=== PATIENT | male | born 1965 | race African-American/Black ===

== ENCOUNTER 2024-09-28 05:18 | Observation (INO) | payer OTHER ==
[2024-09-28 05:28] VITALS: BMI 33.0
[2024-09-28] MEDS ORDERED: ASPIRIN 325 MG TABLET ONE (05:56)
[2024-09-28] MEDS: ASPIRIN 325 MG TABLET PO ONE (05:58)
[2024-09-28 06:59] LABS: POTASSIUM 4.5 mmol/L (3.5-5.1)
[2024-09-28 07:00] LABS: INR 1.03 (0.83-1.09); PROTHROMBIN TIME (PATIENT) 11.2 SEC (9.7-13.0)
[2024-09-28 07:01] LABS: ALBUMIN 3.8 g/dl (3.4-5.0); BLOOD UREA NITROGEN 19.4 mg/dL (7-18); CALCIUM 9.7 mg/dL (8.5-10.1)
[2024-09-28 07:02] LABS: ABSOLUTE IMMATURE GRANULOCYTES 0.02 x10^3/uL (0.0-0.031); BASOPHILS # 0.03 x10^3/uL (0.01-0.08); EOSINOPHIL % 3.9 % (0.8-7.0); EOSINOPHILS # 0.22 x10^3/uL (0.04-0.54); HEMATOCRIT 42.3 % (40.1-51.0); HEMOGLOBIN 13.8 g/dL (13.7-17.5); MCHC 32.6 g/dl (32.3-36.5); MEAN CELL VOLUME 94.8 fl (79.0-92.2); MEAN PLT VOLUME 10.1 fl (9.4-12.4); MONOCYTE # 0.51 x10^3/uL (0.30-0.82); MONOCYTE % 9.1 % (5.3-12.2); PLATELET COUNT 237 x10^3/uL (163-337); RDW 12.8 % (12.2-16.1)
[2024-09-28 07:03] LABS: ACTIVATED PTT 34.5 SECONDS (25.2-36.5)
[2024-09-28 07:06] LABS: BILIRUBIN,TOTAL 0.5 mg/dL (0.2-1); TOT PROT 7.1 g/dl (6.4-8.2)
[2024-09-29 08:14] LABS: ABSOLUTE IMMATURE GRANULOCYTES 0.02 x10^3/uL (0.0-0.031); BASOPHILS # 0.05 x10^3/uL (0.01-0.08); EOSINOPHIL % 4.5 % (0.8-7.0); EOSINOPHILS # 0.24 x10^3/uL (0.04-0.54); HEMATOCRIT 42.5 % (40.1-51.0); HEMOGLOBIN 13.7 g/dL (13.7-17.5); MCHC 32.2 g/dl (32.3-36.5); MEAN CELL VOLUME 93.4 fl (79.0-92.2); MEAN PLT VOLUME 9.7 fl (9.4-12.4); MONOCYTE % 9.5 % (5.3-12.2); PLATELET COUNT 225 x10^3/uL (163-337); RDW 12.7 % (12.2-16.1)
[2024-09-29 08:33] LABS: POTASSIUM 4.7 mmol/L (3.5-5.1)
[2024-09-29 08:36] LABS: CALCIUM 9.8 mg/dL (8.5-10.1)
[2024-09-29 08:37] LABS: ALBUMIN 3.8 g/dl (3.4-5.0); BLOOD UREA NITROGEN 18.9 mg/dL (7-18)
[2024-09-29 08:40] LABS: CREATININE 0.9 mg/dL (0.55-1.3)
[2024-09-29 08:42] LABS: BILIRUBIN,TOTAL 0.6 mg/dL (0.2-1)
[2024-09-29 08:43] LABS: TOT PROT 6.8 g/dl (6.4-8.2)
[2024-09-29] MEDS: PANTOPRAZOLE 40 MG TABLET PO SCH (10:43)
[2024-09-29] MEDS: ASPIRIN 81 MG CHEWABLE TABLETS PO SCH (10:43)
[2024-09-29 16:49] LABS: N-TERMINAL BNP 14.8 pg/ml (5-125)
[2024-09-30 08:00] LABS: HEMATOCRIT 43.7 % (40.1-51.0); HEMOGLOBIN 14.1 g/dL (13.7-17.5); MCHC 32.3 g/dl (32.3-36.5); MEAN CELL VOLUME 93.8 fl (79.0-92.2); MEAN PLT VOLUME 9.7 fl (9.4-12.4); PLATELET COUNT 230 x10^3/uL (163-337); RDW 12.6 % (12.2-16.1)
[2024-09-30 08:12] LABS: POTASSIUM 4.6 mmol/L (3.5-5.1)
[2024-09-30 08:16] LABS: ALBUMIN 3.8 g/dl (3.4-5.0)
[2024-09-30 08:21] LABS: BILIRUBIN,TOTAL 0.6 mg/dL (0.2-1)
[2024-09-30 15:49] VITALS: RESP 18
[2024-09-30] MEDS: ROSUVASTATIN CA 20 MG TABLET PO SCH (21:29)
[2024-10-01 11:42] VITALS: BP 117/84; PULSE 73; TEMP 97.9
== END 2024-10-01 13:46 | disposition home or self-care (01) ==
LOC: JER 05:18 → UNDOADMOB 12:28 → JERBED 12:28 → J4S 13:32 → OBSVTOIN 14:03 → INTOOBSV 14:03 → J4S 09-30 11:02 → JERBED 09-30 11:02
PROVIDERS: ADMIT Internal Medicine; ATTEND Internal Medicine
DX: S29.012A Strain of muscle and tendon of back wall of thorax, initial encounter (principal); X58.XXXA Exposure to other specified factors, initial encounter; E78.00 Pure hypercholesterolemia, unspecified; R07.9 Chest pain, unspecified
CPT/HCPCS: 0241U-QW; 36415; 71045-TC-FY; 76705-TC; 80053; 80061; 83036; 83880; 84443; 84484; 85025; 85027; 85610; 85730; 86850; 86900; 86901; 93005; 93010; 93306-TC; 93351; 94660; 99285-25; G0378